=== PATIENT | male | born 1980 | race Native Hawaiian/Other Pacific Islander ===

== ENCOUNTER 2018-01-29 22:48 | Emergency (ER) | payer SELFPAY ==
[2018-01-29 23:18] VITALS: TEMP 98.3
[2018-01-29 23:54] VITALS: RESP 18
[2018-01-29] MEDS ORDERED: Amoxicillin-Clav 875-125 mg Tab PO STA (23:57)
[2018-01-30] MEDS ORDERED: Amoxicillin-Clav 875-125 mg Tab PO ONE (00:08)
--- NOTE | 2018-01-30 01:32 | C.PDOC ---
History Of Present Illness 37 year old male presents to the ED c/o left ear pain associated with purulent discharge after cleaning with a Q-tip x 1 week. Patient denies fever, chills, headache, dizziness, nausea, vomit, diarrhea, injury, fall, trauma. Time Seen by Provider: 01/29/18 23:13 Chief Complaint (Nursing): ENT Problem History Per: Patient History/Exam Limitations: None Onset/Duration Of Symptoms: Days Current Symptoms Are (Timing): Still Present Quality (Ear): Pain W/Touch, Discharge Anticoagulant/Antiplatlet Use?: No Recent Aspirin Use: No Past Medical History Reviewed: Historical Data, Nursing Documentation, Vital Signs Vital Signs: Last Vital Signs Temp 98.3 F 01/29/18 23:02 Pulse 86 01/30/18 00:36 Resp 18 01/30/18 00:36 BP 211/129 H 01/30/18 00:36 Pulse Ox 100 01/30/18 00:36 - Medical History PMH: HTN Surgical History: No Surg Hx Family History: States: Unknown Family Hx - Social History Hx Alcohol Use: No Hx Substance Use: No - Immunization History Hx Tetanus Toxoid Vaccination: No Hx Influenza Vaccination: No Hx Pneumococcal Vaccination: No Review Of Systems Constitutional: Negative for: Fever, Chills Eyes: Negative for: Vision Change ENT: Positive for: Ear Pain, Ear Discharge. Negative for: Nose Discharge, Nose Congestion Respiratory: Negative for: Cough, Shortness of Breath Gastrointestinal: Negative for: Nausea, Vomiting Neurological: Negative for: Headache, Dizziness Physical Exam - Physical Exam Appears: Non-toxic, No Acute Distress Skin: Normal Color, Warm, Dry Head: Atraumatic, Normacephalic Eye(s): bilateral: Normal Inspection Ear(s): Left: Other (no tragus tenderness, ear canal erythema, TM erythematous with exudates), Right: Normal Oral Mucosa: Moist Throat: Normal, No Erythema, No Exudate Neck: Normal ROM, Supple Chest: Symmetrical Cardiovascular: Rhythm Regular Respiratory: Normal Breath Sounds, No Rales, No Rhonchi, No Wheezing Extremity: Normal ROM, No Tenderness, No Swelling Neurological/Psych: Oriented x3, Normal Speech, Normal Cognition Gait: Steady ED Course And Treatment O2 Sat by Pulse Oximetry: 100 (ON RA) Pulse Ox Interpretation: Normal Progress Note: Plan: - Augmentin 1 tab PO. - Clonidine 0.2 mg PO. - Clonidine 0.1 mg PO. Patient found to have elevated blood pressure, patient states he is non complaint with his medications over the past 7 months. Patient shows now signs of HTN emergency/ urgency. Patient was given catapress 0.3 mg PO with slight decrease in BP. Pt was informed that BP is moderately high and needs to resume BP meds or to take prescribed norvasc until seen by PMD and PMD follow up tomorrow. The importance of compliance to meds and PMD visit was stressed to pt who expressed understanding of the risks of coronary compliation or stroke if HTN is left untreated. Reassessment Condition: Improved Disposition - Disposition Referrals: [facility] [Outside] David Tarango MD [Staff Provider] - Disposition: HOME/ ROUTINE Disposition Time: 01:51 Condition: STABLE Additional Instructions: Please take all meds as directed Please walk in to medical clinic tomorrow or PMD office for BP reevaluation and management Follw up with ENT Return to ER if headache, weakness, decrease vision, vomiting, chest pain or worse Prescriptions: amLODIPine [Norvasc] 10 mg PO DAILY #20 tab Amoxicillin/Clavulanate [Augmentin 875 MG-125 MG] 1 tab PO BID #14 tab Instructions: Ear Infections (Otitis Media), High Blood Pressure (DC) Forms: [facility] ([place]) - Clinical Impression Clinical Impression: Otitis media, Asymptomatic hypertension - PA / MEDICAID BUSINESS ANALYST / Resident Statement MD/DO has reviewed & agrees with the documentation as recorded. - Scribe Statement The provider has reviewed the documentation as recorded by the Scribe Layton Guthrie All medical record entries made by the Scribmary were at my direction and personally dictated by me. I have reviewed the chart and agree that the record accurately reflects my personal performance of the history, physical exam, medical decision making, and the department course for this patient. I have also personally directed, reviewed, and agree with the discharge instructions and disposition.
[2018-01-30 01:39] VITALS: BP 201/129; PULSE 85
[2018-01-30 01:43] VITALS: O2SAT 100
== END 2018-01-30 02:02 | disposition home or self-care (01) ==
LOC: C.ER 22:48
DX: H66.92 Otitis media, unspecified, left ear (principal); I10 Essential (primary) hypertension